=== PATIENT | male | born 1955 | race Caucasian/White ===

== ENCOUNTER 2017-02-07 01:11 | Emergency (ER) | payer SELFPAY ==
[2017-02-07 01:17] VITALS: RESP 16
[2017-02-07] MEDS ORDERED: FLUORESCEIN SODIUM 1 MG STRIP OP ONE (01:21)
[2017-02-07] MEDS ORDERED: PROPARACAINE 0.5% 15 ML OPHT DROP ONE (01:22)
[2017-02-07] MEDS ORDERED: PROPARACAINE 0.5% 15 ML OPHT DROP OP ONE (01:23)
--- NOTE | 2017-02-07 01:42 | EDPHY ---
H & P Stated Complaint: FB R YEY-? [place] 2 days ago. HPI/ROS: HPI CHIEF COMPLAINT: Right eye pain, possible Foreign Body. HISTORY OF PRESENT ILLNESS: Patient is a very pleasant 61-year-old male, history of gout, prediabetes, and states that his tetanus shot is up-to-date as of 3 years ago, he presents emergency room with right eye pain x3 days. Developed eye pain on Thursday. It has been persistently bothering him every night worse at night with light sensitivity. It is out of his right eye. He denies visual loss or blurry vision. He does have light sensitivity. With tearing. He states on Thursday he was working in a very [place] environment. States additionally he was grinding rebar, next maybe something went into his eye. Past Medical History: No medical history except for pre diabetes, gout, hyperlipidemia Past Surgical History: No recent surgical history, remote history nasal surgery Social History: Denies drugs alcohol tobacco products. Family History: Noncontributory ROS REVIEW OF SYSTEMS: A comprehensive 10 point review of systems is otherwise negative aside from elements mentioned in the history of present illness. Exam Constitutional triage nursing summary reviewed, vital signs reviewed, awake/ alert. Eyes left eye is normal on exam. Right eye the conjunctiva is injected, globe is soft, extraocular movements intact, no proptosis. At the 3 to 4:00 position on the right eye there is a speck very tiny black foreign body. There is uptake with fluorescein. Proparacaine gave him great pain relief. No sidel sign. HENT normal inspection, atraumatic, moist mucus membranes, no epistaxis, neck supple/ no meningismus, no raccoon eyes. Respiratory clear to auscultation bilaterally, normal breath sounds, no respiratory distress, no wheezing. Cardiovascular rate normal, regular rhythm, no murmur, no edema, distal pulses normal. Gastrointestinal soft, non-tender, no rebound, no guarding, normal bowel sounds, no distension, no pulsatile mass. Genitourinary no CVA tenderness. Musculoskeletal no midline vertebral tenderness, full range of motion, no calf swelling, no tenderness of extremities, no meningismus, good pulses, neurovascularly intact. Skin pink, warm, & dry, no rash, skin atraumatic. Neurologic awake, alert and oriented x 3, AAOx3, moves all 4 extremities equally, motor intact, sensory intact, CN II-XII intact, normal cerebellar, normal vision, normal speech. Psychiatric normal mood/affect. Heme/Lymph/Immune no lymphadenopathy. Differential Diagnosis: Includes but is not limited to in a particular order, corneal abrasion, corneal tear, foreign body, retained foreign body Medical Decision Making: I did attempt to remove this foreign body with 1 acute tip, 2 a TB syringe with a 30 gauge needle. I was unsuccessful. I explained to him that I do not cause further harm or a large corneal abrasion he will need to follow up with Ophthalmology. He will be placed on erythromycin ointment. Ibuprofen for pain control, Dunlevy for severe pain, cool compresses do not rub his eye. Re-evaluation: [id number]; I spoke with Dr. bolanos with Ophthalmology on-call. She has agreed to see this patient 1:00 p.m. tomorrow. At her wrap whole office. Recommend cool compresses clindamycin, pain medicine. Do not rub his eye. Updated patient his they are agreeable this plan. Source: Patient - Personal History Current Tetanus/Diphtheria Vaccine: Unsure Current Tetanus Diphtheria and Acellular Pertussis (TDAP): Unsure - Medical/Surgical History Hx Asthma: No Hx Chronic Respiratory Disease: No Hx Diabetes: Yes Hx Cardiac Disease: No Hx Renal Disease: No Hx Cirrhosis: No Hx Alcoholism: No Hx HIV/AIDS: No Hx Splenectomy or Spleen Trauma: No Other PMH: DDM - Metformin. Gout. Hypercholesterolemia. - Social History Smoking Status: Never smoked Constitutional: Initial Vital Signs Temperature (C) 36.6 C 02/07/17 01:15 Heart Rate 86 02/07/17 01:15 Respiratory Rate 16 02/07/17 01:15 Blood Pressure 143/86 H 02/07/17 01:15 O2 Sat (%) 100 02/07/17 01:15 O2 Delivery Mode Room Air Allergies/Adverse Reactions: No Known Allergies Allergy (Verified 02/07/17 01:18) Home Medications: Medication Instructions Recorded Allopurinol mg PO 11/17/11 Simvastatin [Zocor 10 mg (RX)] mg PO DAILY18 11/17/11 metFORMIN HCL [Glucophage 500 mg mg PO BIDMEAL 11/17/11 (RX)] Erythromycin 0.5% 3.5 gm OP TID #1 opht.oint 02/07/17 Hydrocodone/APAP 5/325 [Dunlevy 1 - 2 tab PO Q4H PRN #10 tab 02/07/17 5/325] Ibuprofen [Motrin (*)] 800 mg PO Q6-8PRN #7 tab 02/07/17 Medical Decision Making - Data Points Medications Given: Discontinued Medications Proparacaine HCl (Alcaine 0.5%) 2 drops OP EDNOW ONE Stop: 02/07/17 01:24 Last Admin: 02/07/17 01:24 Dose: 2 drops Departure - Departure Disposition: Home, Routine, Self-Care Clinical Impression: Eye foreign body Qualifiers: Encounter type: initial encounter Laterality: right Qualified Code(s): T15.91XA - Foreign body on external eye, part unspecified, right eye, initial encounter Condition: Good Instructions: Eye Foreign Body (ED) Additional Instructions: 1. You need to see Ophthalmology tomorrow. You have an appointment 1:00 p.m.. Please show up there. 2. Take antibiotic ointment 3 times a day. 3. Do not rub her eye. 4. Ibuprofen for mild pain 5. Dunlevy for severe pain. 6. Cool compresses. Referrals: Ginger Hummel MD [Non Staff Provider (MD)] - As per Instructions Prescriptions: Erythromycin 0.5% 3.5 gm OP TID #1 opht.oint Hydrocodone/APAP 5/325 [Dunlevy 5/325] 1 - 2 tab PO Q4H PRN #10 tab PRN Reason: Pain, Moderate Ibuprofen [Motrin (*)] 800 mg PO Q6-8PRN #7 tab
[2017-02-07] MEDS ORDERED: ERYTHROMYCIN 0.5% 1 GM OPHT.OINT EACHEYE ONE (02:13)
[2017-02-07] MEDS ORDERED: HYDROCOD/APAP 5/325 PREPACK#6 BTL TAKEHOME ONE (02:14)
[2017-02-07 02:27] VITALS: BP 137/79; PULSE 89; TEMP 98.1; O2SAT 97
== END 2017-02-07 02:27 | disposition home or self-care (01) ==
LOC: CED 01:11
DX: T15.91XA Foreign body on external eye, part unspecified, right eye, initial encounter (principal); X58.XXXA Exposure to other specified factors, initial encounter